=== PATIENT | male | born 1970 | race Caucasian/White ===

== ENCOUNTER 2018-07-31 16:05 | Outpatient (REF) | payer BC, SELFPAY ==
[2018-07-31 21:47] LABS: TSH (W/Ref FT4) 23.91 uIU/mL (0.358-3.74)
[2018-07-31 22:15] LABS: FREE T4 0.86 ng/dL (0.76-1.46)
[2018-08-03 11:10] LABS: HIV-1/2 Ag & Ab Screen Negative (NEGAT); Hepatitis A Antibody IgM Negative (NEGAT); Hepatitis B Core Antibody Negative (NEGAT); Hepatitis B surface Ag Negative (NEGAT); Hepatitis C Ab w Rflx HCV PCR Negative (NEGAT)
[2018-08-03 11:24] LABS: Syphilis Serology (RPR) Negative (Negative)
[2018-08-03 13:50] LABS: Chlamydia Result Negative; GC Result Negative; Specimen Description URINE
[2018-08-04 11:01] LABS: Thyroglobulin Antibody >500 U/mL (<61); Thyroperoxidase Antibody >1300 U/mL (<61)
== END 2018-07-31 16:25 ==
LOC: NCHCN 16:05
PROVIDERS: PCP Family Medicine; Visit Provider Nurse Practitioner Family
DX: E03.9 Hypothyroidism, unspecified (principal); E01.0 Iodine-deficiency related diffuse (endemic) goiter; Z00.00 Encounter for general adult medical examination without abnormal findings; Z11.4 Encounter for screening for human immunodeficiency virus [HIV]; Z11.59 Encounter for screening for other viral diseases; Z11.3 Encounter for screening for infections with a predominantly sexual mode of transmission
CPT/HCPCS: 86704; 86709; 86803; 87340; 87389; 87491; 87591; 84439; 84443; 86376; 86592; 86800

== ENCOUNTER 2018-09-18 09:17 | Outpatient (REF) | payer BC, SELFPAY ==
[2018-09-18 22:12] LABS: Hemoglobin A1C 5.6 % (4.5-6.2)
[2018-09-18 22:24] LABS: Anion Gap 10.9 mmol/L (3-11); BUN 20 mg/dL (7-18); CO2 26.1 mmol/L (21.0-32.0); CREATININE 0.93 mg/dL (0.70-1.30); Calcium 8.6 mg/dL (8.5-10.1); Chloride 106 mmol/L (98-107); Glucose 95 mg/dL (70-100); Potassium 3.7 mmol/L (3.5-5.1); Sodium 143 mmol/L (136-145)
[2018-09-23 11:27] LABS: Testosterone, Free 8.18 ng/dL (4.26-16.4); Testosterone, Total 282 ng/dL (240-950)
== END 2018-09-18 09:37 ==
LOC: NCHCN 09:17
PROVIDERS: PCP Family Medicine; Visit Provider Nurse Practitioner Family
DX: F52.21 Male erectile disorder (principal); Z13.1 Encounter for screening for diabetes mellitus; Z13.228 Encounter for screening for other metabolic disorders
CPT/HCPCS: 80048; 84402; 84403; 83036

== ENCOUNTER 2022-06-28 14:56 | Outpatient (REF) | payer BC, SELFPAY ==
[2022-06-28 16:44] LABS: HCT 43.5 % (40.0-50.0); HGB 15.1 g/dL (13.5-17.5); MCH 31.2 pg (27.0-33.0); MCHC 34.7 % (32.0-36.0); MCV 90 fL (80-95); MPV 11.2 fL (8.0-11.0); Platelet Count 192 10^3/uL (130-400); RBC 4.84 10^6/uL (4.36-5.78); RDW 12.3 % (11.8-14.1); RDW-SD 40.2 fL; WBC 5.99 10^3/uL (4.4-10.8)
[2022-06-28 16:58] LABS: Hemoglobin A1C 5.7 % (<5.7)
[2022-06-28 17:17] LABS: ALT 53 U/L (16-63); AST 27 U/L (15-37); Albumin 3.9 g/dL (3.4-5.0); Alkaline Phosphatase 53 U/L (46-116); Anion Gap 6.9 mmol/L (3-11); BUN 28 mg/dL (7-18); Bilirubin, Total 0.6 mg/dL (0.2-1.0); CO2 28.1 mmol/L (21.0-32.0); CREATININE 1.1 mg/dL (0.70-1.30); Calcium 8.6 mg/dL (8.5-10.1); Chloride 107 mmol/L (98-107); Estimated GFR 82.29 (mL/min/1.73m2); Glucose 96 mg/dL (74-106); Potassium 3.8 mmol/L (3.5-5.1); Sodium 142 mmol/L (136-145); Total Protein 7.6 g/dL (6.4-8.2)
[2022-06-28 18:17] LABS: FREE T4 0.65 ng/dL (0.76-1.46)
[2022-06-30 16:48] LABS: T3, Total 129 ng/dL (97-169)
[2022-07-01 09:28] LABS: PSA, Screening 0.7 ng/mL (<=2.5)
[2022-07-04 14:34] LABS: Testosterone, Free 6.89 ng/dL (4.26-16.4); Testosterone, Total 183 ng/dL (240-950)
== END 2022-06-28 14:57 | disposition home or self-care (01) ==
LOC: NCHCN 14:56
PROVIDERS: PCP Family Medicine; Visit Provider Family Medicine
DX: Z00.00 Encounter for general adult medical examination without abnormal findings (principal); E03.9 Hypothyroidism, unspecified; F52.21 Male erectile disorder; Z12.5 Encounter for screening for malignant neoplasm of prostate
CPT/HCPCS: 80053; 84153; 84402; 84403; 85027; 83036; 84439; 84443; 84480

== ENCOUNTER 2022-08-30 14:14 | Outpatient (REF) | payer BC, SELFPAY ==
[2022-08-30 16:45] LABS: TSH 6.76 uIU/mL (0.36-3.74)
== END 2022-08-30 14:15 | disposition home or self-care (01) ==
LOC: NCHCN 14:14
PROVIDERS: PCP Family Medicine; Visit Provider Family Medicine
DX: E03.9 Hypothyroidism, unspecified (principal)
CPT/HCPCS: 84443

== ENCOUNTER 2022-11-22 11:31 | Outpatient (REF) | payer BC, SELFPAY ==
[2022-11-22 16:00] LABS: TSH 4.83 uIU/mL (0.36-3.74)
== END 2022-11-22 11:32 | disposition home or self-care (01) ==
LOC: NCHCN 11:31
PROVIDERS: PCP Family Medicine; Visit Provider Family Medicine
DX: E03.9 Hypothyroidism, unspecified (principal)
CPT/HCPCS: 84443

== ENCOUNTER 2023-07-04 14:37 | Outpatient (REF) | payer BC, SELFPAY ==
[2023-07-04 22:50] LABS: PSA, Screening 0.8 ng/mL (<=3.5)
== END 2023-07-04 14:38 | disposition home or self-care (01) ==
LOC: NCHCN 14:37
PROVIDERS: PCP Family Medicine; Referring Provider Family Medicine; Visit Provider Family Medicine
DX: Z00.00 Encounter for general adult medical examination without abnormal findings (principal); E03.9 Hypothyroidism, unspecified; Z12.5 Encounter for screening for malignant neoplasm of prostate
CPT/HCPCS: 84153; 84439; 84443